=== PATIENT | female | born 1975 | race Caucasian/White ===

== ENCOUNTER 2018-05-22 08:27 | Emergency (ER) | payer OTHER ==
[~2018-05-22] VITALS: Ht 134.6 cm; Wt 69.9 kg
[2018-05-22 08:44] VITALS: Ht 134.6 cm; Wt 69.9 kg
[2018-05-22 12:14] VITALS: BP 130/64
== END 2018-05-22 12:14 | disposition home or self-care (01) ==
LOC: ED 08:27
DX: S16.1XXA Strain of muscle, fascia and tendon at neck level, initial encounter (principal); S46.911A Strain of unspecified muscle, fascia and tendon at shoulder and upper arm level, right arm, initial encounter; S29.011A Strain of muscle and tendon of front wall of thorax, initial encounter; S21.90XA Unspecified open wound of unspecified part of thorax, initial encounter; I10 Essential (primary) hypertension; E11.9 Type 2 diabetes mellitus without complications; W18.30XA Fall on same level, unspecified, initial encounter; Y93.89 Activity, other specified; Y92.89 Other specified places as the place of occurrence of the external cause; Y99.8 Other external cause status
CPT/HCPCS: J1885; J3010; Q0162

== ENCOUNTER 2018-12-30 16:02 | Emergency (ER) | payer MEDICAID ==
[~2018-12-30] VITALS: Ht 149.9 cm; Wt 68.9 kg
[2018-12-30 16:05] VITALS: Ht 149.9 cm; Wt 68.9 kg
[2018-12-30 17:50] VITALS: BP 138/60
== END 2018-12-30 17:50 | disposition home or self-care (01) ==
LOC: ED 16:02
DX: L60.0 Ingrowing nail (principal); I10 Essential (primary) hypertension; E11.9 Type 2 diabetes mellitus without complications

== ENCOUNTER 2019-01-29 10:09 | Emergency (ER) | payer MEDICAID ==
[~2019-01-29] VITALS: Ht 157.5 cm; Wt 68.9 kg
[2019-01-29 10:13] VITALS: Ht 157.5 cm; Wt 68.9 kg
[2019-01-29 13:47] VITALS: BP 113/64
== END 2019-01-29 13:47 | disposition home or self-care (01) ==
LOC: ED 10:09
DX: L60.0 Ingrowing nail (principal); L03.031 Cellulitis of right toe; I10 Essential (primary) hypertension; E11.9 Type 2 diabetes mellitus without complications
CPT/HCPCS: J2001